=== PATIENT | female | born 1995 | race Caucasian/White ===

== ENCOUNTER 2020-01-04 08:07 | Day surgery (SDC) | payer BC ==
[~2020-01-04] VITALS: Ht 180.3 cm; Wt 79.5 kg
--- NOTE | 2020-01-04 11:15 | NUR ---
01/04/20 1115 KATARINA DALTON PATIENT TO RECLINER, REPORTS PAIN IS "ACHEY" AND DENIES NEED FOR PAIN MEDICATION. PATIENT WAS OFFERED ORAL MEDICATION AND PREFERS TO FILL RX AT HOME. PATIENTS MOTHER AT BEDSIDE, ENGAGED IN DISCHARGE TEACHING AND NO QUESTIONS. PATIENT IV DC'D AND PATIENT DRESSED WITH ASSISTANCE OF MOTHER. PATIENT ABLE TO VOID PRIOR TO LEAVING ORSC. ESCORTED TO CAR.
== END 2020-01-04 11:15 | disposition home or self-care (01) ==
LOC: ORSCSDS 08:07
PROVIDERS: Orthopaedic Surgery
PROC: 0LB50ZZ Excision of Right Lower Arm and Wrist Tendon, Open Approach (ICD-10-PCS; principal; 2020-01-04 09:30)
DX: M67.431 Ganglion, right wrist (principal)
CPT/HCPCS: 88304; J0690; J2250; J2704; J2795; J3010; J7120

== ENCOUNTER → 2022-05-07 | Outpatient (CLI) | payer OTHER | END | disposition home or self-care (01) | LOC: LAB SHORT 12:06 → LAB 12:06 | PROVIDERS: Internal Medicine | DX: Z12.4 Encounter for screening for malignant neoplasm of cervix (principal) | CPT/HCPCS: 88175 ==

== ENCOUNTER → 2022-05-11 | Outpatient (CLI) | payer OTHER ==
[2022-05-12 23:08] LABS: CHLAMYDIA TRACHOMATIS, NAA Negative (Negative)
== END | disposition home or self-care (01) ==
LOC: LAB 08:16 → LAB SHORT 08:16
PROVIDERS: Internal Medicine
DX: Z11.3 Encounter for screening for infections with a predominantly sexual mode of transmission (principal)
CPT/HCPCS: 87491; 87591

== ENCOUNTER → 2023-07-12 | Outpatient (CLI) | payer OTHER | END | disposition home or self-care (01) | LOC: LAB 10:20 → LAB SHORT 10:20 | DX: R30.0 Dysuria (principal) | CPT/HCPCS: 87077; 87086; 87186 ==

== ENCOUNTER → 2024-01-27 | Outpatient (CLI) | payer OTHER | END | disposition home or self-care (01) | LOC: LAB 09:34 → LAB SHORT 09:34 | DX: L08.9 Local infection of the skin and subcutaneous tissue, unspecified (principal) | CPT/HCPCS: 87070; 87205 ==

== ENCOUNTER → 2024-05-20 | Outpatient (CLI) | payer OTHER ==
[2024-05-21 08:41] LABS: Bacterial Vaginosis PCR Negative (NEGATIVE); Candida glabrata-krusei, PCR NOT DETECTED (NOT DETECT)
[2024-05-21 09:13] LABS: Candida Group, PCR DETECTED (NOT DETECT)
== END ==
LOC: LAB SHORT 11:45 → LAB 11:45
PROVIDERS: Physician Assistant
DX: N89.8 Other specified noninflammatory disorders of vagina (principal)
CPT/HCPCS: 87481; 87661; 87801